=== PATIENT | male | born 1985 | race Two or more races ===

== ENCOUNTER → 2017-02-06 | Outpatient (REF) | payer BC, OTHER | LOC: M SMT 11:53 | PROVIDERS: ATTEND Urology | DX: Z30.2 Encounter for sterilization (principal) ==

== ENCOUNTER → 2017-03-24 | Outpatient (REF) | payer BC, OTHER ==
[2017-03-24 10:54] LABS: IMMMOTILE SPERM CENTRIFUGED ABSENT (ABSENT); IMMOTILE SPERM ABSENT (ABSENT); MOTILE SPERM ABSENT (ABSENT); MOTILE SPERM CENTRIFUGED ABSENT (ABSENT)
== END ==
LOC: M SMT 09:17
PROVIDERS: ATTEND Urology
DX: Z30.2 Encounter for sterilization (principal)

== ENCOUNTER 2022-04-08 04:18 | Emergency (ER) | payer OTHER ==
[~2022-04-08] VITALS: Ht 177.8 cm; Wt 84.6 kg
[2022-04-08 04:19] VITALS: BP 144/79
[2022-04-08] MEDS ORDERED: ATOR1TAB19 PO (04:23)
[2022-04-08] MEDS ORDERED: VALA1TAB5 PO (07:14)
[2022-04-08] MEDS ORDERED: BENZ200C70 PO (07:14)
== END 2022-04-08 07:27 | disposition home or self-care (01) ==
LOC: M ED 04:18
DX: B02.8 Zoster with other complications (principal); R21 Rash and other nonspecific skin eruption; E78.5 Hyperlipidemia, unspecified